=== PATIENT | male | born 1930 | race Caucasian/White ===

== ENCOUNTER → 2017-07-07 | Outpatient (CLI) | payer MEDICARE ==
[~2017-07-07] MED LIST: BICA50TA39 PO; HCTZ25 PO; LIS20 PO; [UNRECOGNIZED DRUG - CODE] PO
[2017-07-07 17:03] LABS: PLATELET COUNT, AUTOMATED 181 K/uL (150-450)
== END ==
LOC: LAB 16:48
PROVIDERS: ATTEND Urology
DX: C61 Malignant neoplasm of prostate (principal)
CPT/HCPCS: 36415; 82040; 82247; 82310; 82374; 82435; 82565; 82947; 84075; 84132; 84153; 84155; 84295; 84403; 84450; 84460; 84520; 85025

== ENCOUNTER 2017-10-13 13:00 | Outpatient (RCR) | payer MEDICARE ==
[2017-10-05 08:28] LABS: PLATELET COUNT, AUTOMATED 156 K/uL (150-450)
[2017-10-05 11:37] VITALS: BP 136/67
[2017-10-14] MEDS ORDERED: MULT1TAB54 PO (09:02)
[2017-10-14] MEDS ORDERED: LEVO50TA80 PO (09:02)
== END 2017-10-22 14:26 | disposition home or self-care (01) ==
LOC: RAON 13:00
PROVIDERS: ATTEND Radiology Radiation Oncology
DX: C61 Malignant neoplasm of prostate (principal)
CPT/HCPCS: 36415; 82040; 82247; 82310; 82374; 82435; 82565; 82947; 84075; 84132; 84153; 84155; 84295; 84450; 84460; 84520; 85025

== ENCOUNTER → 2018-01-05 | Outpatient (CLI) | payer MEDICARE ==
[~2018-01-05] MED LIST changes: +BICA50TA13 PO; -BICA50TA39 PO; +LEVO50TA80 PO; +MULT1TAB54 PO
== END ==
LOC: LAB 09:08
PROVIDERS: ATTEND Urology
DX: R97.20 Elevated prostate specific antigen [PSA] (principal); C61 Malignant neoplasm of prostate
CPT/HCPCS: 36415; 84153

== ENCOUNTER → 2018-01-28 | Outpatient (CLI) | payer MEDICARE ==
[2018-01-28 09:45] LABS: PLATELET COUNT, AUTOMATED 184 K/uL (150-450)
== END ==
LOC: LAB 09:21
PROVIDERS: ATTEND Internal Medicine Nephrology
DX: I12.9 Hypertensive chronic kidney disease with stage 1 through stage 4 chronic kidney disease, or unspecified chronic kidney disease (principal); N18.3 Chronic kidney disease, stage 3 (moderate); E55.9 Vitamin D deficiency, unspecified
CPT/HCPCS: 36415; 82040; 82310; 82374; 82435; 82565; 82570; 82947; 84100; 84132; 84156; 84295; 84520; 85025

== ENCOUNTER 2018-04-13 13:46 | Outpatient (RCR) | payer MEDICARE ==
[2018-04-06 08:13] VITALS: BP 152/73
--- NOTE | 2018-04-14 04:58 | ONCOLOGY FOLLOW UP NOTE ---
EVENT DATE: April 13, 2018 REASON FOR VISIT Oncology followup; known history of prostate carcinoma. ONCOLOGY HISTORY 1. [place] [facility] and 7 adenocarcinoma of the prostate. Patient presenting with palpable irregularity of the gland bilaterally, clinical stage T2c tumor, diagnosed 08/2004. 2. Status post external beam radiation therapy to 72 Gy, completed 01/26/2007. 3. Addition of low-dose bicalutamide at 15 mg daily in 2016, due to PSA elevation to 3.5 (initial PSA was 1.8). INTERVAL HISTORY Patient clinically is doing well. I saw the patient with Rocio Hernandez NP, who is fluent in [place]. Clinically, the patient is stable, with baseline nocturia x1-2, good stream. Denies any bone pain with the exception of some right hip pain, which has been present for 20 years; no change. No bowel complaints. No general medical complaints. Most recent PSA is reasonably stable at 2.0 ng/mL. Prior PSA was in the 1.8 range. PAST MEDICAL HISTORY Prostate carcinoma. PAST SURGICAL HISTORY Prior hernia repair. SOCIAL HISTORY The patient is . Apparently language is [place]. He does not drink alcohol and does not smoke. REVIEW OF SYSTEMS A 14-point review of systems is entirely negative with the exception of the right hip discomfort, but this does not bother patient persistently. Remains fairly active for his age. He is helping his , who is recovering from bilateral knee surgery, I believe. PHYSICAL EXAMINATION GENERAL: A pleasant 88-year-old male. VITAL SIGNS: Weight is stable at 144, BP 150/71, pulse 65, respirations 16, O2 saturation 91% on room air. LUNGS: Clear bilaterally. HEART: Heart sounds regular. No audible murmur. No lymphadenopathy. RECTAL: Exam is deferred, as this is typically performed by Dr. Patel, who will see the patient in July. EXTREMITIES: No edema or cyanosis. IMPRESSION Overall, the patient is clinically doing well on the low-dose bicalutamide. I have asked him to continue the medication at this time and follow up with Urology in three months. If his PSA is stable, I will see him again in a year or at nine months, depending on his visits with other providers. He will continue regular followup with Dr. Chau. No medication changes were indicated today. All questions answered to his satisfaction. Medications updated for the EMR in [employer]. [facility]
== END 2018-04-30 15:34 | disposition home or self-care (01) ==
LOC: RAON 13:46
PROVIDERS: ATTEND Radiology Radiation Oncology
DX: C61 Malignant neoplasm of prostate (principal); Z92.3 Personal history of irradiation
CPT/HCPCS: 36415; 84153; G0463; 99212

== ENCOUNTER → 2018-07-13 | Outpatient (CLI) | payer MEDICARE | LOC: LAB 08:40 | PROVIDERS: ATTEND Urology | DX: C61 Malignant neoplasm of prostate (principal) | CPT/HCPCS: 36415; 84153 ==

== ENCOUNTER → 2018-10-26 | Outpatient (CLI) | payer MEDICARE | LOC: LAB 07:32 | PROVIDERS: ATTEND Urology | DX: C61 Malignant neoplasm of prostate (principal) | CPT/HCPCS: 36415; 84153 ==

== ENCOUNTER → 2018-11-08 | Outpatient (CLI) | payer MEDICARE ==
[2018-11-08 09:55] LABS: PLATELET COUNT, AUTOMATED 164 K/uL (150-450)
== END ==
LOC: LAB 09:00
PROVIDERS: ATTEND Urology
DX: C61 Malignant neoplasm of prostate (principal)
CPT/HCPCS: 36415; 82040; 82247; 82310; 82374; 82435; 82565; 82947; 84075; 84132; 84155; 84295; 84403; 84450; 84460; 84520; 85025